=== PATIENT | male | born 1990 | race Caucasian/White ===

== ENCOUNTER 2019-08-04 14:13 | Emergency (ER) | payer SELFPAY ==
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
[2019-08-04] MEDS ORDERED: SMZ./TMP. 800/160 MG TABLET ONE (15:42)
[2019-08-04] MEDS ORDERED: DOXYCYCLINE 100 MG CAP PO ONE (15:42)
[2019-08-04] MEDS ORDERED: TETANUS & DIPHTHERIA TOX,ADULT 0.5 ML VIAL ONE (15:43)
--- NOTE | 2019-08-04 15:55 | ER ---
Nurse's Notes [facility] Name: Parish Pulliam Age: 29 yrs Sex: Male : 1990 Arrival Date: 08/04/2019 Time: 14:15 Bed 7 Private MD: None, None Diagnosis: Cellulitis and acute lymphangitis of other parts of limb-hand, 3rd and 4th web space;Puncture wound without foreign body of right hand Presentation: 08/03 14:23 Chief complaint: Right hand pain and swelling after removing piece of metal from finger hb 3 days ago. Coronavirus screen: Proceed with normal triage. Ebola Screen: No symptoms or risks identified at this time. Initial Sepsis Screen: Does the patient meet any 2 criteria? No. Patient's initial sepsis screen is negative. Does the patient have a suspected source of infection? No. Patient's initial sepsis screen is negative. Risk Assessment: Do you want to hurt yourself or someone else? Patient reports no desire to harm self or others. Onset of symptoms was August 01, 2019. 14:23 Method Of Arrival: Ambulatory 14:23 Acuity: ANNA 3 hb Historical: - Allergies: 14:27 No Known Drug Allergies; hb - Home Meds: 14:28 None [Active]; hb - PMHx: 14:27 Schizophrenia; hb - PSHx: 14:27 None; hb - Immunization history:: Adult Immunizations up to date. - Social history:: Smoking status: Patient reports the use of cigarette tobacco products, smokes one pack cigarettes per day. - Family history:: not pertinent. Screenin:40 Abuse screen: Denies threats or abuse. Nutritional screening: No deficits noted. em Tuberculosis screening: No symptoms or risk factors identified. Fall Risk None identified. Assessment: 14:45 General: Appears in no apparent distress. comfortable, Behavior is calm, cooperative, em appropriate for age, Denies fever. Pain: Complains of pain in right hand Pain currently is 0 out of 10 on a pain scale. at worst was 10 out of 10 on a pain scale. Pain began 2-3 days ago. Neuro: Level of Consciousness is awake, alert, obeys commands, Oriented to person, place, time, situation, Appropriate for age. Cardiovascular: Capillary refill < 3 seconds Patient's skin is warm and dry. Respiratory: Airway is patent Respiratory effort is even, unlabored, Respiratory pattern is regular, symmetrical. Derm: Skin is intact, is healthy with good turgor, Skin is pink, warm \T\ dry. Musculoskeletal: Capillary refill < 3 seconds, Range of motion: intact in all extremities, Swelling present in right hand. 15:47 Reassessment: Patient appears in no apparent distress at this time. x-ray at bedside. em Vital Signs: 14:23 BP 137 / 84; Pulse 78; Resp 16; Temp 97.2; Pulse Ox 100% on R/A; Weight 61.23 kg; hb Height 5 ft. 6 in. (167.64 cm); Pain 10/10; 14:23 Body Mass Index 21.79 (61.23 kg, 167.64 cm) hb ED Course: 14:15 Patient arrived in ED. mr 14:15 None, None is Private Physician. mr 14:27 Triage completed. hb 14:28 Arm band placed on. hb 14:35 Brock Bedoya MD is Attending Physician. kuldip 14:36 Marito Hoff RN is Primary Nurse. em 14:45 Patient has correct armband on for positive identification. Placed in gown. Call light em in reach. 15:54 Hand Right 3 View XRAY In Process Unspecified. EDMS 15:54 Missael Wheeler MD is Referral Physician. kuldip 15:59 No provider procedures requiring assistance completed. Patient did not have IV access em during this emergency room visit. Administered Medications: 15:42 Drug: Tetanus-Diphtheria Toxoid Adult 0.5 ml {[employer]: [employer]. Exp: em 05/06/2021. Lot #: [id number]. } Route: IM; Site: right deltoid; 15:59 Follow up: Response: No adverse reaction em 15:42 Drug: Bactrim (160 mg-800 mg (DS) 1 tablet Route: PO; em 16:00 Follow up: Response: No adverse reaction em 15:42 Drug: Doxycycline 200 mg Route: PO; em 16:00 Follow up: Response: No adverse reaction em Outcome: 15:54 Discharge ordered by . kuldip 15:59 Discharged to home ambulatory. em 15:59 Condition: good 15:59 Discharge instructions given to patient, Instructed on discharge instructions, follow up and referral plans. medication usage, Demonstrated understanding of instructions, follow-up care, medications, Prescriptions given X 3. 16:00 Patient left the ED. em Signatures: Dispatcher [employer] Brock Blair MD MD [facility] Marito Stewart, RN RN Marisol Andrade RN RN
--- NOTE | 2019-08-04 15:55 | EDPHYS ---
Physician Documentation [facility] Name: aPrish Pulliam Age: 29 yrs Sex: Male : 1990 Arrival Date: 08/04/2019 Time: 14:15 Bed 7 Private MD: None, None ED Physician Brock Bedoya HPI: 08/03 15:30 This 29 yrs old Male presents to ER via Ambulatory with complaints of Hand kuldip Swelling. 15:30 The patient or guardian reports decreased range of motion, pain, swelling, tenderness. kuldip The complaints affect the right hand diffusely. Context: The problem was sustained at home, resulted from puncture. Onset: The symptoms/episode began/occurred 4 day(s) ago. Modifying factors: The symptoms are alleviated by elevation, the symptoms are aggravated by movement, dependent position. Associated signs and symptoms: The patient has no apparent associated signs or symptoms. Severity of symptoms: At their worst the symptoms were mild, in the emergency department the symptoms are actually worse, mildly. The patient has not experienced similar symptoms in the past. Historical: - Allergies: 14:27 No Known Drug Allergies; hb - Home Meds: 14:28 None [Active]; hb - PMHx: 14:27 Schizophrenia; hb - PSHx: 14:27 None; hb - Immunization history:: Adult Immunizations up to date. - Social history:: Smoking status: Patient reports the use of cigarette tobacco products, smokes one pack cigarettes per day. - Family history:: not pertinent. ROS: 15:30 Constitutional: Negative for fever, chills, and weight loss, Eyes: Negative for injury, kuldip pain, redness, and discharge, ENT: Negative for injury, pain, and discharge, Neck: Negative for injury, pain, and swelling, Cardiovascular: Negative for chest pain, palpitations, and edema, Respiratory: Negative for shortness of breath, cough, wheezing, and pleuritic chest pain, Abdomen/GI: Negative for abdominal pain, nausea, vomiting, diarrhea, and constipation, Back: Negative for injury and pain, : Negative for injury, bleeding, discharge, and swelling, Skin: Negative for injury, rash, and discoloration, Neuro: Negative for headache, weakness, numbness, tingling, and seizure, Psych: Negative for depression, anxiety, suicide ideation, homicidal ideation, and hallucinations, Allergy/Immunology: Negative for hives, rash, and allergies, Endocrine: Negative for neck swelling, polydipsia, polyuria, polyphagia, and marked weight changes, Hematologic/Lymphatic: Negative for swollen nodes, abnormal bleeding, and unusual bruising. 15:30 MS/extremity: Positive for pain, swelling, tenderness, of the dorsal aspect of proximal phalanx of right middle finger, dorsal aspect of proximal phalanx of right ring finger, palmar aspect of proximal phalanx of right ring finger and palmar aspect of proximal phalanx of right middle finger. Exam: 15:30 Constitutional: This is a well developed, well nourished patient who is awake, alert, kuldip and in no acute distress. Head/Face: Normocephalic, atraumatic. Eyes: Pupils equal round and reactive to light, extra-ocular motions intact. Lids and lashes normal. Conjunctiva and sclera are non-icteric and not injected. Cornea within normal limits. Periorbital areas with no swelling, redness, or edema. ENT: Nares patent. No nasal discharge, no septal abnormalities noted. Tympanic membranes are normal and external auditory canals are clear. Oropharynx with no redness, swelling, or masses, exudates, or evidence of obstruction, uvula midline. Mucous membranes moist. Neck: Trachea midline, no thyromegaly or masses palpated, and no cervical lymphadenopathy. Supple, full range of motion without nuchal rigidity, or vertebral point tenderness. No Meningismus. Chest/axilla: Normal chest wall appearance and motion. Nontender with no deformity. No lesions are appreciated. Cardiovascular: Regular rate and rhythm with a normal S1 and S2. No gallops, murmurs, or rubs. Normal PMI, no JVD. No pulse deficits. Respiratory: Lungs have equal breath sounds bilaterally, clear to auscultation and percussion. No rales, rhonchi or wheezes noted. No increased work of breathing, no retractions or nasal flaring. Abdomen/GI: Soft, non-tender, with normal bowel sounds. No distension or tympany. No guarding or rebound. No evidence of tenderness throughout. Back: No spinal tenderness. No costovertebral tenderness. Full range of motion. Male : Normal genitalia with no discharge or lesions. Skin: Warm, dry with normal turgor. Normal color with no rashes, no lesions, and no evidence of cellulitis. Neuro: Awake and alert, GCS 15, oriented to person, place, time, and situation. Cranial nerves II-XII grossly intact. Motor strength 5/5 in all extremities. Sensory grossly intact. Cerebellar exam normal. Normal gait. Psych: Awake, alert, with orientation to person, place and time. Behavior, mood, and affect are within normal limits. 15:30 Musculoskeletal/extremity: Extremities: decreased ROM, erythema, pain, ROM: full active range of motion, full passive range of motion, Circulation is intact in all extremities. Sensation intact. Compartment Syndrome exam of affected extremity: is normal. DVT Exam: negative Homans' sign noted on exam, no appreciated bluish discoloration, pain, swelling, tenderness, erythema, increased warmth, that is mild. Vital Signs: 14:23 BP 137 / 84; Pulse 78; Resp 16; Temp 97.2; Pulse Ox 100% on R/A; Weight 61.23 kg; hb Height 5 ft. 6 in. (167.64 cm); Pain 10/10; 14:23 Body Mass Index 21.79 (61.23 kg, 167.64 cm) hb MDM: 14:35 Patient medically screened. kuldip 15:34 Data reviewed: vital signs, nurses notes, radiologic studies. kuldip 15:39 Differential diagnosis: closed fracture, contusion, abrasion. Data interpreted: Cardiac kuldip monitor: not applicable for this patient encounter. Pulse oximetry: on room air is 100 %. Test interpretation: by ED physician or midlevel provider: plain radiologic studies. Counseling: I had a detailed discussion with the patient and/or guardian regarding: the historical points, exam findings, and any diagnostic results supporting the discharge/admit diagnosis, radiology results, the need for outpatient follow up, for definitive care, a hand specialist. ED course: kim try abx and elevated, follow up dr herrmann, return if worse to the er. 08/03 15:30 Order name: Hand Right 3 View XRAY kuldip Administered Medications: 15:42 Drug: Tetanus-Diphtheria Toxoid Adult 0.5 ml {[employer]: [employer]. Exp: em 05/06/2021. Lot #: [id number]. } Route: IM; Site: right deltoid; 15:59 Follow up: Response: No adverse reaction em 15:42 Drug: Bactrim (160 mg-800 mg (DS) 1 tablet Route: PO; em 16:00 Follow up: Response: No adverse reaction em 15:42 Drug: Doxycycline 200 mg Route: PO; em 16:00 Follow up: Response: No adverse reaction em Disposition: 08/04/19 15:54 Discharged to Home. Impression: Cellulitis and acute lymphangitis of other parts of limb - hand, 3rd and 4th web space, Puncture wound without foreign body of right hand. - Condition is Stable. - Discharge Instructions: Puncture Wound, Cellulitis, Adult, [id number], Puncture Wound, [id number]. - Prescriptions for Doxycycline Hyclate 100 mg Oral Tablet - take 1 tablet by ORAL route every 12 hours; 20 tablet. Motrin IB 200 mg Oral Tablet - take 2 tablet by ORAL route every 6 hours As needed as needed with food; 30 tablet. Bactrim DS 800- 160 mg Oral Tablet - take 1 tablet by ORAL route every 12 hours for 10 days; 20 tablet. - Medication Reconciliation Form, Thank You Letter, Antibiotic Education, Prescription Opioid Use form. - Follow up: Private Physician; When: 2 - 3 days; Reason: Recheck today's complaints, Continuance of care, Re-evaluation by your physician. Follow up: Missael Herrmann; When: 2 - 3 days; Reason: Recheck today's complaints, Re-evaluation by your physician. - Problem is new. - Symptoms have improved. Signatures: Dispatcher [employer] EDBorck Sandoval MD MD cha Munoz, Edgar, RN RN Marisol Payne RN RN Corrections: (The following items were deleted from the chart) 16:00 15:54 08/04/2019 15:54 Discharged to Home. Impression: Cellulitis and acute em lymphangitis of other parts of limb - hand, 3rd and 4th web space; Puncture wound without foreign body of right hand. Condition is Stable. Discharge Instructions: Puncture Wound, Cellulitis, Adult, [id number], Puncture Wound, [id number]. Prescriptions for Doxycycline Hyclate 100 mg Oral Tablet - take 1 tablet by ORAL route every 12 hours; 20 tablet, Motrin IB 200 mg Oral Tablet - take 2 tablet by ORAL route every 6 hours As needed as needed with food; 30 tablet, Bactrim DS 800-160 mg Oral Tablet - take 1 tablet by ORAL route every 12 hours for 10 days; 20 tablet. and Forms are Medication Reconciliation Form, Thank You Letter, Antibiotic Education, Prescription Opioid Use. Follow up: Private Physician; When: 2 - 3 days; Reason: Recheck today's complaints, Continuance of care, Re-evaluation by your physician. Follow up: Missael Herrmann; When: 2 - 3 days; Reason: Recheck today's complaints, Re-evaluation by your physician. Problem is new. Symptoms have improved. kuldip
--- NOTE | 2019-08-04 16:27 | RAD REPORT ---
EXAM DESCRIPTION: RAD - Hand Right 3 View - 08/04/2019 3:54 pm CLINICAL HISTORY: Right hand pain FINDINGS: No fracture or dislocation is seen. No bone or joint abnormality noted
[2019-08-04 16:32] VITALS: BP 137/84; TEMP 97.2; O2SAT 100
== END 2019-08-04 16:00 | disposition home or self-care (01) ==
LOC: ER 14:13
DX: L03.113 Cellulitis of right upper limb (principal); L03.123 Acute lymphangitis of right upper limb; W26.9XXA Contact with unspecified sharp object(s), initial encounter; Y93.9 Activity, unspecified; Y92.009 Unspecified place in unspecified non-institutional (private) residence as the place of occurrence of the external cause; Z23 Encounter for immunization; F17.210 Nicotine dependence, cigarettes, uncomplicated
CPT/HCPCS: 90471; 90714; 99283